=== PATIENT | male | born 1945 | race Caucasian/White ===

== ENCOUNTER 2016-05-26 09:28 | Day surgery (SDC) | payer MEDICARE, OTHER ==
[~2016-05-26] VITALS: Ht 181.6 cm; Wt 110.2 kg
--- NOTE | 2016-05-26 09:10 | ANESPREOP ---
Anesthesia Record Date and Time DATE: 05/26/16 TIME: 09:07 Pre-Op Diagnosis melanoma rt. shoulder Proposed Surgical Procedure WIDE EXCISION OF MELANOMA TO RT. SHOULDER Allergies: Coded Allergies: No Known Allergies (Verified Allergy, Unknown, 09/29/09) Ht/Wt/BMI Height: ' " Weight: kg BMI: kg/m2 Medications Inpatient Medications Current Medications Medications (Trade) Dose Ordered Sig/Clayton Start Time Stop Time Status Last Admin Dose Admin Lactated Ringer's (Lactated Ringers) 1,000 ml @ 50 mls/hr Q20H 05/26/16 07:00 Midazolam HCl (Versed) 0.5-3 mg every 10 min PRN Q10MIN PRN 05/26/16 07:00 Fentanyl (Fentanyl) 25-50 mcg, not to exceed ... PRN PRN 05/26/16 07:00 Lisinopril/Hydrochlorothiazide (Lisinopril-Hctz 20-25 mg Tab) 1 Each Tablet, 1 TAB PO DAILY, (Reported) Metoprolol Succinate (Toprol Xl) 25 Mg Tab.sr.24h, (Reported) Currently on Beta Chaya: Yes Medical/Surgical History Anesthesia PMH: Reports: *Hypertension (per h&p), Cancer (right shoulder- malignant -melanoma per h&p), Denies: *Angina, *Diabetes, *Dyspnea, *UT, Anesthesia Reactions, Arthritis, Asthma, CHF, COPD, CVA/Stroke/TIA, Clotting Problems, Deep Vein Thrombosis, Glaucoma, Hepatitis, Hiatal Hernia, Malignant Hyperthermia, Pneumonia, Reflux, Renal Disease, Seizures, Sleep Apnea, Thyroid Disease, Tuberculosis Smoking Status: Never smoker Has pt. smoked today?: No Use Chewing Tobacco?: No Second Hand Exposure: No Substance Use Type: does not use Substance last used: unknown Alcohol Intake: none Past Surgical History Orthopedic Surgeries: No Abdominal Surgeries: No Genitourinary Surgeries: No Cardiac Surgeries: No Endocrine Surgeries: No Reproductive Surgeries: No Neurological Surgeries: No Ear Surgeries: No Nose Surgeries: Yes - SEPTOPLASTY Throat Surgeries: No Other Surgeries: No Anesthesia Adverse Reactions: FOUND none Hx of Motion Sickness: No Pertinent Findings EKG Rhythm: Sinus Rhythm Physical Exam Respiratory: Bilat breath sounds equal, Lungs clear Cardiovascular: FOUND Regular rate, rhythm, FOUND No murmur Airway Assessment Mallampati Score: II TMD: 3 Fingerbreadths Neck Extension: Good Overall Assessment: No Airway Concerns ASA: 2 Plan Anesthesia Plan: MAC Discussion Discussed risks/options/alternatives of anesthesia and questions answered. Patient consents. Nursing pain assessment noted. Attestation Statement Prior to the delivery of any anesthetic medication, I examined the patient, developed the plan, obtained the patient's consent and discussed the risk and benefits of the procedure with the patient/guardian. RAFAEL GODINEZ CRNA May 26, 2016 09:09
[~2016-05-26 09:28] MED LIST: CEFAZOLIN 1 GRAM INJECTION IV ONE; FENTANYL 100mcg/2ml INJECTION IV PRN; LIDOCAINE 1% (10mg/ml) 2ml SDV INJ ONE; LIDOCAINE 1%/EPI 1:100,000 20ml MDV ONE; LISI1TAB13 PO; LR 1,000 ML IV SCH; METO25TA40 PO; MIDAZOLAM 5mg/5ml INJECTION IV PRN
--- OUTSIDE RECORDS SUMMARY | 2016-05-26 09:31 | XMS REPORT | CCD ---
Author Author JONATHAN STAPLES Organization Unknown Address [address] [place], [place] [id number] Phone 0 Care Team Providers Care Turning Machine Operator Helper Name Role Phone Bri SHAH Attending Physician [phone] Vital Signs Unknown. Allergies Allergy Code Allergy Type Reaction Status No Known Drug Allergies 0 No known drug allergies Active Procedures Unknown. History of Immunizations Unknown. Problems Unknown. Results HEMOGLOBIN Test Name Code Test Result Test Units Test Date/Time HEMOGLOBIN 11.4000 g /dL 05/14/2013 14:40 Medications Unknown. Medications Administered Unknown. Encounters Unknown. Social History Smoking Status Code Start Date End Date Unknown if ever smoked [id number] Patient Decision Aids Unknown. Instructions You were admitted to [facility] on 05/14/2013. You were discharged from [facility] on 05/14/2013. Should you have any questions prior to discharge, please contact a member of your healthcare team. If you have left the hospital and have any questions, please contact your primary care physician. Chief Complaint and Reason For Visit Chief Complaint Date of Onset LAB Function Status Unknown. Plan of Care Unknown. Referral/Transition of Care Unknown.
--- OUTSIDE RECORDS SUMMARY | 2016-05-26 09:31 | XMS REPORT | CCD ---
Author Author JONATHAN STAPLES Organization Unknown Address [address] [place], [place] [id number] Phone 0 Care Team Providers Care Straight Cutter Name Role Phone BRANDO JOY W Attending Physician [phone] Vital Signs Unknown. Allergies Allergy Code Allergy Type Reaction Status No Known Drug Allergies 0 No known drug allergies Active Procedures Unknown. History of Immunizations Unknown. Problems Unknown. Results COMP METABOLIC Test Name Code Test Result Test Units Test Date/Time GLUCOSE 115.0000 mg/ dL 05/03/2013 13:50 BUN 20.0000 mg/dL 05/03/2013 13:50 CREATININE 1.3000 mg /dL 05/03/2013 13:50 [age]GE 68.0000 YE[age] 05/03/2013 13:50 GFR 58.7000 05/03/2013 13:50 SODIUM 140.0000 mmol /L 05/03/2013 13:50 POTASSIUM 4.1000 mmol/L 05/03/2013 13:50 CHLORIDE 105.0000 mmol/L 05/03/2013 13:50 CO2 26.0000 mmol/L 05/03/2013 13:50 CALCIUM 9.3000 mg/ dL 05/03/2013 13:50 AST 14.0000 U/L 05/03/2013 13:50 ALT 33.0000 U/L 05/03/2013 13:50 ALKALINE PHOS 140.0000 U/L 05/03/2013 13:50 TOTAL PROTEIN 7.2000 g/dL 05/03/2013 13:50 ALBUMIN 3.7000 g/dL 05/03/2013 13:50 TOTAL BILI 0.7000 mg /dL 05/03/2013 13:50 LIPASE Test Name Code Test Result Test Units Test Date/Time LIPASE 242.0000 U/L 05/03/2013 13:50 CBC W/ DIFF Test Name Code Test Result Test Units Test Date/Time WBC 12.1000 x10^3 05/03/2013 13:50 RBC 5.5600 x10^6 05/03/2013 13:50 HEMOGLOBIN 16.2000 g /dL 05/03/2013 13:50 HEMATOCRIT 48.1000 % 05/03/2013 13:50 MCV 87.0000 fL 05/03/2013 13:50 MCH 29.2000 pg 05/03/2013 13:50 MCHC 33.7000 g/dL 05/03/2013 13:50 RDW 13.2000 % 05/03/2013 13:50 PLATELETS 248.0000 x10^3 05/03/2013 13:50 MPV 8.8000 fL 05/03/2013 13:50 NEUTROPHILS 80.6000 % 05/03/2013 13:50 LYMPHOCYTES 12.9000 % 05/03/2013 13:50 MONOCYTES 6.2000 % 05/03/2013 13:50 EOSINOPHILS 0.3000 % 05/03/2013 13:50 BASOPHILS 0.0000 % 05/03/2013 13:50 SEG 70.0000 %% 05/03/2013 13:50 BAND 10.0000 %% 05/03/2013 13:50 LYMPH 8.0000 %% 05/03/2013 13:50 MONO 7.0000 %% 05/03/2013 13:50 EOS 0.0000 %% 05/03/2013 13:50 BASO 0.0000 %% 05/03/2013 13:50 ATYP LYMPH 5.0000 % % 05/03/2013 13:50 META 0.0000 %% 05/03/2013 13:50 REFLEX MAN DIFF YES N/A 05/03/2013 13:50 RBC MORPHOLOGY NORMAL N/A 05/03/2013 13:50 Medications Medication Code Dose Units Frequency Route Modification Start Date/Time Stop Date/ Time Toprol XL 50MG Oral Tablet, Extended Release 597796 50 MILLIGRAMS DAILY ORAL Hydrochlorothiazide 25MG Oral Tablet 931624 25 MILLIGRAMS DAILY ORAL Medications Administered Unknown. Encounters Unknown. Social History Smoking Status Code Start Date End Date Unknown if ever smoked [id number] Patient Decision Aids Unknown. Instructions You were admitted to [facility] on 05/03/2013. Should you have any questions prior to discharge, please contact a member of your healthcare team. If you have left the hospital and have any questions, please contact your primary care physician. Chief Complaint and Reason For Visit Chief Complaint Date of Onset O/P LAB/FLUIDS Function Status Unknown. Plan of Care Unknown. Referral/Transition of Care Unknown.
--- OUTSIDE RECORDS SUMMARY | 2016-05-26 09:32 | XMS REPORT | Continuity of Care Document ---
Demographics Preferred Language Unknown Marital Status Unknown Hindu Affiliation Unknown Race Unknown Ethnic Group Unknown Author Author [facility] Organization [facility] Address Unknown Phone Unavailable Allergies Medications Problems Procedures Results Encounters ACCT No. Visit Date/Time Discharge Status Pt. Type Provider Facility Loc./Unit Complaint [id number] 02/06/2016 12:38:00 ACT Unknown [id number] 11/16/2013 12:57:00 ACT Unknown [id number] 05/15/2013 10:54:00 ACT Unknown [id number] 05/07/2013 07:46:00 ACT Unknown
--- OUTSIDE RECORDS SUMMARY | 2016-05-26 09:32 | XMS REPORT | Summary of Care ---
Author Author Werner Lam M.D. Unknown Address [address] [place] [address] [place] [address] Phone Unavailable Care Team Providers Care Director Wholesale Name Role Phone Werner Lam M.D. Unavailable Unavailable Melba Law APRN, PP Unavailable Unavailable Unavailable Functional Status Functional Status Health Issues* Name Dates Details Functional status health issues are not documented Status: Cognitive Status Health Issues* Name Dates Details Cognitive status health issues are not documented Status: Problems Name Dates Details Benign hypertension (401.1, I10) Status: Active Obese (278.00, E66.9) Status: Active Elevated PSA (790.93, R97.2) Status: Active Prophylactic antibiotic (V58.62, Z79.2) Status: Active BPH with obstruction/lower urinary tract symptoms (600.01, N40.1) Status: Active Incomplete bladder emptying (788.21, R33.9) Status: Active Medications Name Dates Details Lisinopril-Hydrochlorothiazide 20-12.5 MG Oral Tablet TAKE 1 TABLET DAILY. * Started 06-Dec-2014 ActiveToprol XL 50 MG Oral Tablet Extended Release 24 Hour TAKE 1 TABLET DAILY. * Refills: 0 * Started 06-Dec-2014 ActiveAspirin 81 MG Oral Tablet TAKE 1 TABLET DAILY. * Refills: 0 * Started 06-Dec-2014 ActiveTamsulosin HCl - 0.4 MG Oral Capsule TAKE 1 CAPSULE Bedtime * Quantity: 30 Refills: 0 Werner Lam M.D.* Started 21-Feb-2015 Active Allergies and Adverse Reactions Name Dates Details No Known Allergies Status: Active Past Medical History Name Dates Details History of gastrointestinal hemorrhage (V12.79, Z87.19) Status: Resolved Procedures Procedure Dates Details History of Colonoscopy Procedures not documented Immunization Name Dates Details Immunizations not documented Family History Mother* Name Dates Details Family history of malignant neoplasm (V16.9, Z80.9) Status: Active Father* Name Dates Details Family history of Bone cancer (170.9, C41.9) Status: Active Family history of hypertension (V17.49, Z82.49) Status: Active Family history of myocardial infarction (V17.3, Z82.49) Status: Active Social History Name Dates Details Smoking Status* Never smoker Vital Signs Date Test Result Details 28-Mar-2015 13:25 BP Systolic 126 mm[Hg] Status: BP Diastolic 80 mm[Hg] Status: Heart Rate 76 /min Status: Height 72 in Status: Weight 247 lb Status: Body Mass Index Calculated 33.5 kg/m2 Status: Body Surface Area Calculated 2.33 m2 Status: 07-Mar-2015 13:12 BP Systolic 147 mm[Hg] Status: BP Diastolic 88 mm[Hg] Status: Heart Rate 79 /min Status: Results Date Description Value Details Results not documented Plan of Care Planned Observations* Name Dates Details Planned Goals not documented Goal Planned Encounters* Appointment; Provider: Werner Lam On 02-Apr-2015 11:00 Instructions * Instructions not documented Encounters Appointment; Werner Lam Encounter Diagnosis: Problem not documented On 28-Mar-2015 13:30 Appointment; Werner Lam Encounter Diagnosis: Problem not documented On 07-Mar-2015 13:00 Appointment; Werner Lam Encounter Diagnosis: Problem not documented On 21-Feb-2015 13:15
--- OUTSIDE RECORDS SUMMARY | 2016-05-26 09:32 | XMS REPORT | Summary of Care ---
Author Author Werner Lam M.D. Unknown Address [address] [place] [address] [place] [address] Phone Unavailable Care Team Providers Care Steward Racetrack Name Role Phone Werner Lam M.D. Unavailable [...] Incomplete bladder emptying (788.21, R33.9) Status: Active Prostate cancer (185, C61) Status: Active Medications Name Dates Details Lisinopril-Hydrochlorothiazide 20-12.5 MG Oral Tablet TAKE 1 TABLET DAILY. * Started 06-Dec-2014 ActiveToprol XL 50 MG Oral Tablet Extended Release 24 Hour TAKE 1 TABLET DAILY. * Refills: 0 * Started 06-Dec-2014 ActiveAspirin 81 MG Oral Tablet TAKE 1 TABLET DAILY. * Refills: 0 * Started 06-Dec-2014 ActiveTamsulosin HCl - 0.4 MG Oral Capsule TAKE 1 CAPSULE BY MOUTH AT BEDTIME * Quantity: 90 Refills: 3 Werner Lam M.D.* Started 21-Feb-2015 Active Allergies [...] smoker Vital Signs Date Test Result Details 04-Apr-2015 12:53 BP Systolic 112 mm[Hg] Status: BP Diastolic 67 mm[Hg] Status: Heart Rate 64 /min Status: Height 72 in Status: Weight 247 lb Status: Body Mass Index Calculated 33.5 kg/m2 Status: Body Surface Area Calculated 2.33 m2 Status: 28-Mar-2015 13:25 BP Systolic 126 mm[Hg] Status: [...] Planned Encounters* Appointment; Provider: Werner Lam On 13:15 Instructions * Instructions not documented Encounters Appointment; Werner Lam Diagnosis: Problem not documented On 04-Apr-2015 11:45 Appointment; Werner Lam Diagnosis: Problem not documented On 28-Mar-2015 13:30 Appointment; Werner Lam Diagnosis: Problem not documented On 07-Mar-2015 13:00 Appointment; Werner Lam Diagnosis: Problem not documented On 21-Feb-2015 13:15
--- OUTSIDE RECORDS SUMMARY | 2016-05-26 09:32 | XMS REPORT | Summary of Care ---
Author Author Werner Lam M.D. Unknown Address [address] [place] [address] [place] [address] Phone Unavailable Care Team Providers Care Collections Technician Name Role Phone Werner Lam M.D. Unavailable [...] Dates Details Planned Goals not documented Goal Instructions * Instructions not documented Encounters Appointment; Werner Lam Encounter Diagnosis: Problem not documented On 28-Mar-2015 13:30 Appointment; Werner Lam Encounter Diagnosis: Problem not documented On 07-Mar-2015 13:00 Appointment; Werner Lam Encounter Diagnosis: Problem not documented On 21-Feb-2015 13:15
--- OUTSIDE RECORDS SUMMARY | 2016-05-26 09:32 | XMS REPORT | Summary of Care ---
Author Author Werner Lam M.D. Unknown Address [address] [place] [address] [place] [address] Phone Unavailable Care Team Providers Care Product Marketer Name Role Phone Werner Lam M.D. Unavailable [...]
--- OUTSIDE RECORDS SUMMARY | 2016-05-26 09:32 | XMS REPORT | Summary of Care ---
Author Author Werner Lam M.D. Unknown Address [address] [place] [address] [place] [address] Phone Unavailable Care Team Providers Care Trip Motor Operator Name Role Phone Law CARDIOVASCULAR TECHNICIAN Melba TAYLOR Unavailable Functional Status Functional Status Health Issues* Name Dates Details Functional status health issues are not documented Status: Cognitive Status Health Issues* Name Dates Details Cognitive status health issues are not documented Status: Problems Name Dates Details Benign hypertension (401.1, I10) Status: Active Obese (278.00, E66.9) Status: Active Elevated PSA (790.93, R97.2) Status: Active BPH with obstruction/lower urinary tract [...] DAILY. * Refills: 0 * Started 06-Dec-2014 Active Allergies and Adverse Reactions Name Dates [...] smoker Vital Signs Date Test Result Details 21-Feb-2015 13:16 BP Systolic 123 mm[Hg] Status: BP Diastolic 82 mm[Hg] Status: Heart Rate 68 /min Status: Height 72 in Status: Weight 247 lb Status: Body Mass Index Calculated 33.5 kg/m2 Status: Body Surface Area Calculated 2.33 m2 Status: Results Date Description Value Details Results not documented Plan of Care Planned Observations* Name Dates Details Planned Goals not documented Goal Planned Encounters* Appointment; Provider: Werner Lam On 07-Mar-2015 13:00 Instructions * Instructions not documented Encounters Appointment; Werner Lam Encounter Diagnosis: Problem not documented On 21-Feb-2015 13:15
--- OUTSIDE RECORDS SUMMARY | 2016-05-26 09:32 | XMS REPORT | Summary of Care ---
Author Author Werner Lam M.D. Organization Unknown Address [address] [place] [address] [place] [address] Phone Unavailable Care Team Providers Care Chemists Name Role Phone Werner Lam M.D. Unavailable Unavailable Melba Law APRN, PP Unavailable Unavailable Unavailable Functional Status Functional Status Health Issues* Name Dates Details Functional status health issues are not documented Status: Cognitive Status Health Issues* Name Dates Details Cognitive status health issues are not documented Status: Problems Name Dates Details Benign hypertension (401.1, I10) Status: Active Obese (278.00, E66.9) Status: Active Prophylactic antibiotic (V58.62, Z79.2) Status: Active BPH with obstruction/lower urinary tract symptoms (600.01, N40.1) Status: Active Elevated PSA (790.93, R97.2) Status: Active Incomplete bladder emptying (788.21, R33.9) [...] Refills: 0 Werner Lam M.D.* Started 21-Feb-2015 ActiveCiprofloxacin HCl - 500 MG Oral Tablet TAKE 1 TABLET Twice daily Start 2 days before biopsy * Quantity: 10 Refills: 0 Werner Lam M.D.* Started 04-Mar-2015 Active Allergies and Adverse Reactions Name Dates [...] smoker Vital Signs Date Test Result Details 07-Mar-2015 13:12 BP Systolic 147 mm[Hg] Status: BP Diastolic 88 mm[Hg] Status: Heart Rate 79 /min Status: 21-Feb-2015 13:16 BP Systolic 123 mm[Hg] Status: [...] Planned Encounters* Appointment; Provider: Werner Lam On 28-Mar-2015 13:30 Instructions * Instructions not documented Encounters Appointment; Werner Lam Encounter Diagnosis: Problem not documented On 07-Mar-2015 13:00 Appointment; Werner Lam Encounter Diagnosis: Problem not documented On 21-Feb-2015 13:15
--- OUTSIDE RECORDS SUMMARY | 2016-05-26 09:32 | XMS REPORT | Summary of Care ---
Author Author Werner Lam M.D. Organization Unknown Address [address] [place] [address] [place] [address] Phone Unavailable Care Team Providers Care Lift Mechanic Name Role Phone Werner Lam M.D. Unavailable [...] ActiveCiprofloxacin HCl - 500 MG Oral Tablet Take 1 tablet twice daily * Quantity: 10 Refills: 0 Werner Lam M.D.* Started 07-Mar-2015 Ended 12-Mar-2015 Active Allergies and Adverse Reactions Name Dates [...] m2 Status: Results Date Description Value Details 24-Feb-2015 09:18 PSA ( PROSTATE SPECIFIC ANTIGEN) 3100 Comments: Verified by Repeat Analysis PROSTATE SPECIFIC ANTIGEN 9.250 ng/mL (Above high threshold) Range: 0.000 -4.000 Plan of Care Planned Observations* Name Dates Details Planned Goals not documented Goal Planned Encounters* Appointment; Provider: Werner Lam On 28-Mar-2015 13:30 Instructions * Instructions not documented Encounters Appointment; Werner Lam Encounter Diagnosis: Problem not documented On 07-Mar-2015 13:00 Appointment; Werner Lam Encounter Diagnosis: Problem not documented On 21-Feb-2015 13:15
--- OUTSIDE RECORDS SUMMARY | 2016-05-26 09:32 | XMS REPORT | CCD ---
Author Author JONATHAN STAPLES Organization Unknown Address [address] [place], [place] [address] Phone 0 Care Team Providers Care Cheese Tester Name Role Phone RENDON BELEM Attending Physician 0 Vital Signs Unknown or Not Available. Allergies Allergy Code Allergy Type Reaction Status No Known Drug Allergies 0 No known drug allergies Active Procedures Unknown or Not Available. History of Immunizations Unknown or Not Available. Problems Unknown or Not Available. Results COMP METABOLIC - Collect Date/Time: 11/02/2013 17:00 Test Name Code Test Result Test Units Test Ref Range GLUCOSE 113 mg/dL L=70 H=110 BUN 19 mg/dL L=7 H=18 CREATININE 1.20 mg/ dL L=0.60 H=1.30 AGE 68 YEARS GFR 64.4 SODIUM 143 mmol/L L=136 H=145 POTASSIUM 3.9 mmol/ L L=3.5 H=5.1 CHLORIDE 106 mmol/L L=98 H=107 CO2 24 mmol/L L=21 H=32 CALCIUM 9.6 mg/dL L=8.5 H=10.1 AST 14 U/L L=15 H=37 ALT 34 U/L L=12 H=78 ALKALINE PHOS 116 U/ L L=46 H=116 TOTAL PROTEIN 7.8 g/ dL L=6.4 H=8.2 ALBUMIN 4.0 g/dL L=3.4 H=5.0 TOTAL BILI 0.50 mg/ dL L=0.00 H=1.00 LIPID PANEL - Collect Date/Time: 11/02/2013 17:00 Test Name Code Test Result Test Units Test Ref Range CHOLESTEROL 135 mg/ dL L=0 H=200 TRIGLYCERIDES 150 mg /dL L=30 H=150 HDL 47 mg/dL L=40 H=60 LDL, CALC 58 mg/dL L=0 H=100 VLDL 30 mg/dL L=0 H=40 CHOL/HDL RISK 2.9 RATIO L=0.0 H=5.0 PT FASTING: NO N/A Medications Unknown or Not Available. Medications Administered Unknown or Not Available. Encounters Unknown or Not Available. Social History Smoking Status Code Start Date End Date Unknown if ever smoked [id number] Patient Decision Aids Unknown or Not Available. Discharge Instructions You were admitted to [facility] on 11/02/2013. You were discharged from [facility] on 11/02/2013. Should you have any questions prior to discharge, please contact a member of your healthcare team. If you have left the hospital and have any questions, please contact your primary care physician. Chief Complaint and Reason For Visit Chief Complaint Date of Onset LAB Function Status Unknown or Not Available. Plan of Care Unknown or Not Available. Referral/Transition of Care Unknown or Not Available.
--- OUTSIDE RECORDS SUMMARY | 2016-05-26 09:33 | XMS REPORT | CCD ---
Author Author CHERYL REYES Organization Unknown Address [address] [place], [place] [address] Phone 0 Care Team Providers Care Executive Secretary Name Role Phone PERICO ANDRAE Attending Physician [phone] Vital Signs Unknown or Not Available. Allergies Allergy Code Allergy Type Reaction Status No Known Drug Allergies 0 No known drug allergies Active Procedures Unknown or Not Available. History of Immunizations Unknown or Not Available. Problems Unknown or Not Available. Results COMP METABOLIC - Collect Date/Time: 12/26/2015 10:09 Test Name Code Test Result Test Units Test Ref Range GLUCOSE 88 mg/dL L=70 H=110 BUN 17 mg/dL L=7 H=18 CREATININE 0.98 mg/ dL L=0.60 H=1.30 AGE 70 YEARS GFR 76.1 SODIUM 142 mmol/L L=136 H=145 POTASSIUM 4.0 mmol/ L L=3.5 H=5.1 CHLORIDE 105 mmol/L L=98 H=107 CO2 30 mmol/L L=21 H=32 CALCIUM 9.1 mg/dL L=8.5 H=10.1 AST 14 U/L L=15 H=37 ALT 25 U/L L=12 H=78 ALKALINE PHOS 95 U/ L L=46 H=116 TOTAL PROTEIN 7.2 g/ dL L=6.4 H=8.2 ALBUMIN 3.8 g/dL L=3.4 H=5.0 TOTAL BILI 0.60 mg/ dL L=0.00 H=1.00 LIPID PANEL - Collect Date/Time: 12/26/2015 10:09 Test Name Code Test Result Test Units Test Ref Range CHOLESTEROL 135 mg/ dL L=0 H=200 TRIGLYCERIDES 96 mg/ dL L=30 H=150 HDL 46 mg/dL L=40 H=60 LDL, CALC 70 mg/dL L=0 H=100 VLDL 19 mg/dL L=0 H=40 CHOL/HDL RISK 2.9 RATIO L=0.0 H=5.0 PT FASTING: YES N/A CBC W/ DIFF - Collect Date/Time: 12/26/2015 10:09 Test Name Code Test Result Test Units Test Ref Range WBC 7.3 x10^3 L=4.8 H=10.8 RBC 5.63 x10^6 L=4.70 H=6.10 HEMOGLOBIN 16.4 g/ dL L=14.0 H=18.0 HEMATOCRIT 47.8 % L=42.0 H=52.0 MCV 85 fL L=80 H=100 MCH 29.0 pg L=27.0 H=33.0 MCHC 34.2 g/dL L=33.0 H=37.0 RDW 13.6 % L=11.5 H=14.5 PLATELETS 216 x10^3 L=150 H=450 MPV 8.3 fL L=7.8 H=11.0 NEUTROPHILS 73.7 % L=40.0 H=80.0 LYMPHOCYTES 15.8 % L=20.0 H=45.0 MONOCYTES 7.4 % L=0.0 H=10.0 EOSINOPHILS 2.6 % L=0.0 H=5.0 BASOPHILS 0.5 % L=0.0 H=2.0 REFLEX MAN DIFF NO N /A Active Medications Unknown or Not Available. Medications Administered During Visit Unknown or Not Available. Encounters Encounter Diagnosis Diagnosis Code Start Date Essential (primary) hypertension I10 Social History Smoking Status Code Start Date End Date Unknown if ever smoked [id number] Patient Decision Aids Unknown or Not Available. Discharge Instructions You were admitted to [facility] on 12/26/2015 10:00 with a principal diagnosis of Essential (primary) hypertension You had the following tests done: CBC W / DIFF COMP METABOLIC LIPID PANEL You were discharged from [facility] on 12/26/2015 10:01 Should you have any questions prior to [...]
--- OUTSIDE RECORDS SUMMARY | 2016-05-26 09:33 | XMS REPORT | Summary of Care ---
Author Author Werner Lam M.D. Organization Unknown Address [address] [place] [address] [place] [address] Phone Unavailable Care Team Providers Care Compensation Vice President Name Role Phone Werner Lam M.D. Unavailable [...] daily * Quantity: 10 Refills: 0 Werner aLm M.D.* Started 07-Mar-2015 Ended 12-Mar-2015 Active Allergies [...]
[2016-05-26 09:53] VITALS: BP 143/88; PULSE 64; RESP 17; TEMP 97.6; O2SAT 95; Ht 181.6 cm; Wt 110.2 kg
[2016-05-26] MEDS ORDERED: FENTANYL 100mcg/2ml INJECTION ONE (11:17)
[2016-05-26] MEDS ORDERED: MIDAZOLAM 2mg/2ml INJECTION ONE (11:17)
[2016-05-26 11:45] VITALS: BP 120/75; PULSE 61; RESP 23; TEMP 97.2; O2SAT 94
--- NOTE | 2016-05-26 11:49 | PDPROCED ---
Procedure Note Date 05/26/16 Procedure Name Wide excision of malignant melanoma right shoulder: Lesion size 2.8 cm, excision 5x4.8 cm, final defect 6.6x6.3x0.4 cm Procedure Detail Preop dx: Malignant melanoma right shoulder, Faisal's level 3, Breslow depth 0.6 mm. Postop dx: Same Anesthesia: MAC Case: Clean Complications: None JULIA PATTEN MD May 26, 2016 11:48
[2016-05-26] MEDS ORDERED: ACET1TAB12 PO (11:55)
[2016-05-26] MEDS ORDERED: CEPH-583 PO (11:55)
--- NOTE | 2016-05-26 11:58 | ANESPO ---
Post-Op Note Date 05/26/16 Time: 11:57 Status Pt Participated in Evaluation: Pt participated by phone Vital Signs Date Time Temp Pulse Resp B/P Pulse Ox O2 Delivery O2 Flow Rate FiO2 05/26/16 11:45 97.2 61 23 120/75 94 Room Air Respiratory Function: Airway patent, Regular respirations Cardiovascular Function: Regular pulse Mental Status: Alert/oriented Pain Level Intensity: 0 Hydration: Taking po fluids, IV infusing Complications during Recovery None apparent Post-Anesthesia Notes pt. grady. well Follow-Up Instructions Instructions Per Surgeon Additional Information none RAFAEL GODINEZ CRNA May 26, 2016 11:57
[2016-05-26 12:00] VITALS: BP 131/83; PULSE 60; RESP 22; O2SAT 96
[2016-05-26] MEDS ORDERED: ONDANSETRON 4mg/2ml INJECTION IV PRN (12:00)
[2016-05-26] MEDS ORDERED: HYDROCODONE/APAP 5 mg/325 mg TABLET PO PRN (12:00)
[2016-05-26] MEDS ORDERED: ATROPINE 1mg/10ml Syringe IV PRN (12:00)
[2016-05-26 12:15] VITALS: BP 114/69; PULSE 60; RESP 21; O2SAT 94
[2016-05-26 12:30] VITALS: BP 117/71; PULSE 58; RESP 22; O2SAT 95
--- NOTE | 2016-05-26 15:26 | OPNOTEF ---
DATE OF SURGERY 05/26/2016 SURGEON Martha Chaney MD PREOPERATIVE DIAGNOSIS Malignant melanoma, right shoulder. POSTOPERATIVE DIAGNOSIS Malignant melanoma, right shoulder. OPERATION Wide excision of malignant melanoma, right shoulder. Lesion size was 2.8 cm, excision 5 x 4.8 cm, final defect 6.6 x 6.3 x 0.4 cm. ANESTHESIA MAC. INDICATIONS The patient is a 71-year-old man who was referred by Dr. Juan Manuel Young for evaluation and management of a biopsy-proven malignant melanoma of his right shoulder. The patient had first noticed the lesion on his shoulder approximately five years ago and stated that it had been gradually increasing in size. He denied any pain or bleeding. Dr. Young had evaluated the lesion and a shave biopsy was performed - pathology results confirmed a superficial spreading malignant melanoma, Faisal level III, Breslow level 0.6 mm. It was negative for ulceration, lymphovascular or perineural invasion and the mitotic rate was less than 1 figure/HPF. The patient has no family history of skin cancer; he does have frequent sun exposure without sunscreen and works as a dump truck driver off highway. On exam, he had a 2.8 cm dark-brown lesion with irregular pigmented and irregular borders with regression laterally. A portion of the lesion was pink and consistent with a shave biopsy. In detailed discussion with the patient preoperatively, the risks, benefits and alternatives of wide excision of the lesion with secondary closure were reviewed including, although not limited to, bleeding, infection, poor or keloid scarring, residual and/or recurrent disease. The patient understood and wished to proceed. PROCEDURE The patient was brought to the operating room where, after suitable IV sedation , the right shoulder was prepped and draped in the usual sterile manner. It was then infiltrated with 1% lidocaine with epinephrine. The lesion was excised with 1-cm margins peripherally and down to the fascia in depth. The final defect was as noted above. Meticulous hemostasis was obtained using electrocautery. The wound was then dressed with Hydrofera Blue Ready, Mepilex, ABD and Mefix tape. The patient was then brought to the recovery room in stable condition. Estimated blood loss was less than 10 mL. The case was clean. Specimens: Malignant melanoma, right shoulder. [facility]
== END 2016-05-26 12:35 | disposition home or self-care (01) ==
LOC: SCU 09:28
PROVIDERS: ATTEND Surgery Plastic and Reconstructive Surgery
DX: C43.61 Malignant melanoma of right upper limb, including shoulder (principal)
CPT/HCPCS: 11606; A6209; A6210; J0690; J2250; J3010; J7120; 88305

== ENCOUNTER 2016-05-31 06:53 | Day surgery (SDC) | payer MEDICARE, OTHER ==
[~2016-05-31] VITALS: Ht 180.3 cm; Wt 110.6 kg
[~2016-05-31 06:53] MED LIST changes: +ACET1TAB12 PO; -CEFAZOLIN 1 GRAM INJECTION IV ONE; +CEPH-583 PO; -FENTANYL 100mcg/2ml INJECTION IV PRN; -LIDOCAINE 1% (10mg/ml) 2ml SDV INJ ONE; -LR 1,000 ML IV SCH; -MIDAZOLAM 5mg/5ml INJECTION IV PRN
--- OUTSIDE RECORDS SUMMARY | 2016-05-31 06:59 | XMS REPORT | Continuity of Care Document ---
Demographics Preferred Language Unknown Marital Status Unknown Zoroastrianism Affiliation Unknown Race Unknown Ethnic Group Unknown Author Author [facility] Organization [facility] Address Unknown Phone Unavailable Allergies Medications Problems Procedures Results Encounters ACCT No. Visit Date/Time Discharge Status Pt. Type Provider Facility Loc./Unit Complaint [id number] 02/06/2016 12:38:00 ACT Unknown [id number] 11/16/2013 12:57:00 ACT Unknown [id number] 05/15/2013 10:54:00 ACT Unknown [id number] 05/07/2013 07:46:00 ACT Unknown
--- OUTSIDE RECORDS SUMMARY | 2016-05-31 06:59 | XMS REPORT | Continuity of Care Document ---
Author Author [facility] Organization [facility] Address Unknown Phone Unavailable Support Name Relationship Address Phone JULIA PATTEN MD Caregiver [address] [place] [address] [place] [address] Unavailable KIRBY RIVER "ANDRAE" Caregiver [address] [place] [address] Unavailable TAM TORRE Next Of Kin Unknown [phone] Insurance Providers Guarantor Pedro Torre Address [address] [place] [address] * Email [email or web address] Payer [employer] Policy Number [id number] Subscriber's Name Pedro Torre Relationship 18 Self Group Number [id number] Payer Medicare Policy Number [id number] Subscriber's Name Pedro Torre Relationship 18 Self Advance Directives Directive Response Recorded Date/Time Ordered Resuscitation Status Full Code 05/25/16 2:32pm Resuscitation Documents on File No 05/26/16 10:13am DPOA for Healthcare Only No 05/26/16 10:13am Living Will No 05/26/16 10:13am Problems No problem information available. Medications Current Home Medications Medication Dose Units Route Directions Days Qty Instructions Start Date Acetaminophen With Codeine (Tylenol With Codeine #3 Tablet) 300-30 Tablet 1-2 Tab Oral Every 4-6 Hours Prn as needed for Pain 20 Tablet 05/26/16 Cephalexin (Keflex) 500 Mg Capsule 500 Mg Oral Daily 4 Capsule Lisinopril/Hydrochlorothiazide (Lisinopril-Hctz 20-25 Mg Tab) 1 Each Tablet 1 Tab Oral Daily 05/25/16 Metoprolol Succinate (Toprol Xl) 25 Mg Tab.sr.24h Social History Social History Problem Response Recorded Date/Time Onset Date Status Reason for Hospitalization REMOVAL OF SKIN LESION 05/26/2016 12:04pm Not Applicable Not Applicable Chewing Tobacco Status Yes 07/10/2012 5:07pm Not Applicable Not Applicable Hx Substance Use No 05/26/2016 9:57am Not Applicable Not Applicable Hx Alcohol Use Y beer 3-4 day. rum on the weekends 05/26/2016 9:57am Not Applicable Not Applicable Has the pt used tobacco in the last 12 months Yes 05/26/2016 9:57am Not Applicable Not Applicable Query Response Start Date Stop Date Smoking Status Never smoker Hospital Discharge Instructions Instructions: Care Instructions: I was in the hospital because (patient own words): to have skin cancer removd from my right shoulder Discharge Diet: Regular Discharge Activity: Refer to pre-operative packet Follow Up Appointments: Follow up surgery will be on TuesdayMay 31 at [facility]. The hospital will call you on Tuesday with your arrival time for Tuesday. Pending Lab / Results: No Pending Lab Patient Instructions: Take Keflex 500 mg daily. Expected Signs/Symptoms: Refer to pre-operative packet Notify Physician If: Refer to pre-operative packet During Business Hours:: Call the office with questions or concerns [phone] After Business Hours:: Call [phone] and have the tubing machine operator page the physician Pain Management/Treatment: Refer to pre-operative packet Wound/Incision Care: Leave all dressings in place. Do not get wet. Condition at time of discharge: Good Plan of Care Discharge Date 05/26/16 12:35pm Instructions/Education Provided [facility] Prescriptions See Medication Section Functional Status Query Response Date Recorded Ability to complete ADL's impeded by No change May 26, 2016 10:13am Allergies, Adverse Reactions, Alerts No known allergies. Immunizations Query Response on File Recorded Date/Time Hx Influenza Vaccination No 05/26/16 9:57am Hx Pneumococcal Vaccination No 05/26/16 9:57am Hx Influenza Vaccination No 05/26/16 9:57am Vital Signs Acute Vital Signs Vital Response Date/Time Temperature (Fahrenheit) 97.2 deg F (96.8 - 99.1) 05/26/2016 11:45am Temperature (Calculated Celsius) 36.02086 degrees C (36.0 - 37.3) 05/26/2016 11:45am Temperature Source Temporal 05/26/2016 11:45am Pulse Rate (adult) 58 bpm (60 - 100) 05/26/2016 12:30pm Respiratory Rate 22 breaths/min (10 - 20) 05/26/2016 12:30pm O2 Sat by Pulse Oximetry 95 % (90 - 100) 05/26/2016 12:30pm Oxygen Delivery Method Room Air 05/26/2016 12:30pm Blood Pressure 117/71 mm Hg 05/26/2016 12:30pm Blood Pressure Source Automatic Cuff 05/26/2016 12:30pm Height (Feet) 5 feet 05/26/2016 9:53am Height (Inches) 11.50 inches 05/26/2016 9:53am Weight (Kilograms) 110.200 kg 05/26/2016 9:53am Body Mass Index (BMI) 33.4 05/26/2016 9:53am Results No known relevant diagnostic tests, laboratory data and/or discharge summary. Procedures Procedure Status Date Provider(s) Excision of lesion Completed 05/26/16 JULIA PATTEN MD Encounters Encounter Location Arrival/Admit Date Discharge/Depart Date Attending Provider Departed [facility] 05/26/16 9:28am 05/26/16 12 :35pm JULIA PATTEN MD
[2016-05-31] MEDS ORDERED: LIDOCAINE 1% (10mg/ml) 2ml SDV INJ ONE (07:00)
[2016-05-31] MEDS ORDERED: LR 1,000 ML IV SCH (07:00)
[2016-05-31 07:27] VITALS: Ht 180.3 cm; Wt 110.6 kg
[2016-05-31 07:28] VITALS: BP 147/89; PULSE 56; RESP 14; TEMP 97.4; O2SAT 98
[2016-05-31 07:44] VITALS: PULSE 59; RESP 16
[2016-05-31 07:54] LABS: ANION GAP 14 MEQ/L (5-15); BUN/CREATININE RATIO 18 RATIO (6-26); CALCIUM 9.7 MG/DL (8.4-10.2); CHLORIDE 101 MEQ/L (98-107); CO2 - CARBON DIOXIDE 31 MEQ/L (22-30); GLOMERULAR FILTRATION RATE 74; GLUCOSE 94 MG/DL (75-110); SODIUM 146 MEQ/L (134-144)
[2016-05-31] MEDS ORDERED: CEFAZOLIN 1 GRAM INJECTION IV ONE (08:00)
--- NOTE | 2016-05-31 09:19 | ANESPREOP ---
Anesthesia Record Date and Time DATE: 05/31/16 TIME: 09:17 Pre-Op Diagnosis melanoma Proposed Surgical Procedure SKIN GRAFT NPO since: [place] Allergies: Coded Allergies: No Known Allergies (Verified Allergy, Unknown, 09/29/09) Ht/Wt/BMI Height: 5 ' 11.00 " Weight: 110.600 kg BMI: 34.0 kg/m2 Vital Signs Date Time Temp Pulse Resp B/P Pulse Ox O2 Delivery O2 Flow Rate FiO2 05/31/16 07:44 59 16 05/31/16 07:28 97.4 147/89 98 Room Air Medications Inpatient Medications Current Medications Medications (Trade) Dose Ordered Sig/Clayton Start Time Stop Time Status Last Admin Dose Admin Lactated Ringer's (Lactated Ringers) 1,000 ml @ 50 mls/hr Q20H 05/31/16 07:00 Acetaminophen with Codeine (Tylenol with Codeine #3 Tablet) 300-30 Tablet, 1-2 TAB PO Q4-6HPRN PRN for PAIN Last Taken: on 05/30/16 1800 Cephalexin (Keflex) 500 Mg Capsule, 500 MG PO DAILY Last Taken: on 05/30/16 1800 Lisinopril/Hydrochlorothiazide (Lisinopril- Hctz 20-25 mg Tab) 1 Each Tablet, 1 TAB PO DAILY, (Reported) Last Taken: on 05/30/16 0800 Metoprolol Succinate (Toprol Xl) 25 Mg Tab.sr.24h, 1 TAB PO DAILY, (Reported) Last Taken: on 05/31/16 0530 Currently on Beta Chaya: Yes Beta Chaya Last Taken: 05/31/16 0530 Medical/Surgical History Anesthesia PMH: Reports: *Hypertension, Cancer (right shoulder-malignant - melanoma ), Denies: *Angina, *Diabetes, *Dyspnea, *MA, Anesthesia Reactions (no airway issues), Arthritis, Asthma, CHF, COPD, CVA/Stroke/TIA, Clotting Problems , Deep Vein Thrombosis, Glaucoma, Hepatitis, Hiatal Hernia, Malignant Hyperthermia, Pneumonia, Reflux, Renal Disease, Seizures, Sleep Apnea, Thyroid Disease, Tuberculosis Smoking Status: Never smoker Use Chewing Tobacco?: No Second Hand Exposure: No Substance Use Type: does not use Substance last used: unknown Alcohol Intake: none Past Surgical History Orthopedic Surgeries: No Abdominal Surgeries: No Genitourinary Surgeries: No Cardiac Surgeries: No Endocrine Surgeries: No Reproductive Surgeries: No Neurological Surgeries: No Ear Surgeries: No Nose Surgeries: Yes - SEPTOPLASTY Throat Surgeries: Yes - tonsils Other Surgeries: Yes - SKIN CA REMOVAL RIGHT SHOULDER Anesthesia Adverse Reactions: FOUND none Pertinent Findings Laboratory Tests 05/31/16 07:31 EKG Rhythm: Sinus Rhythm Physical Exam Respiratory: Bilat breath sounds equal, Lungs clear Cardiovascular: FOUND Regular rate, rhythm, FOUND No murmur Airway Assessment Mallampati Score: I TMD: 3 Fingerbreadths Neck Extension: Good Teeth: Poor Dentation (missing several) Overall Assessment: No Airway Concerns ASA: 3 Plan Anesthesia Plan: TIVA Discussion Discussed risks/options/alternatives of anesthesia and questions answered. Patient consents. Nursing pain assessment noted. Attestation Statement Prior to the delivery of any anesthetic medication, I examined the patient, developed the plan, obtained the patient's consent and discussed the risk and benefits of the procedure with the patient/guardian. NAILA PINTO CRNA May 31, 2016 09:19
[2016-05-31] MEDS ORDERED: PROPOFOL 500mg 50 ML IV ONE (09:29)
[2016-05-31] MEDS ORDERED: FENTANYL 100mcg/2ml INJECTION ONE (09:32)
[2016-05-31 10:14] VITALS: BP 102/62; PULSE 65; RESP 16; TEMP 97.3; O2SAT 98
[2016-05-31] MEDS ORDERED: ONDANSETRON 4mg/2ml INJECTION IV PRN (10:15)
[2016-05-31] MEDS ORDERED: ATROPINE 1mg/10ml Syringe IV PRN (10:15)
[2016-05-31] MEDS ORDERED: HYDROCODONE/APAP 5 mg/325 mg TABLET PO PRN (10:15)
--- NOTE | 2016-05-31 10:17 | PDPROCED ---
Procedure Note Date 05/31/16 Procedure Name STSG to right shoulder: 6.5 x 6 cm Procedure Detail Preop dx: Open wound right shoulder status post wide excision of malignant melanoma Postop dx: Same Anesthesia: MAC Case: Clean contaminated EBL: Less than 5 ml Complications: None JULIA PATTEN MD May 31, 2016 10:17
[2016-05-31] MEDS ORDERED: ACET1TAB12 PO (10:19)
[2016-05-31] MEDS ORDERED: CEPH-583 PO (10:19)
--- NOTE | 2016-05-31 10:28 | ANESPO ---
Post-Op Note Date 05/31/16 Time: 10:28 Status Pt Participated in Evaluation: Pt participated in person Vital Signs Date Time Temp Pulse Resp B/P Pulse Ox O2 Delivery O2 Flow Rate FiO2 05/31/16 10:14 97.3 65 16 102/62 98 Mask 5.00 Respiratory Function: Airway patent, Regular respirations Cardiovascular Function: Regular pulse Telemetry Pattern: SR Mental Status: Alert/oriented Pain Level Intensity: 0 Hydration: Taking po fluids Complications during Recovery None apparent Follow-Up Instructions Instructions Per Surgeon NAILA PINTO CRNA May 31, 2016 10:28
[2016-05-31 10:29] VITALS: BP 113/71; PULSE 61; RESP 16; TEMP 97.6; O2SAT 94
[2016-05-31 10:44] VITALS: BP 113/76; PULSE 60; RESP 16; O2SAT 97
[2016-05-31 10:59] VITALS: BP 115/73; PULSE 61; RESP 16; O2SAT 98
--- NOTE | 2016-05-31 16:14 | OPNOTEF ---
DATE OF OPERATION 05/31/2016 PREOPERATIVE DIAGNOSIS Open wound of right shoulder, status post wide excision of malignant melanoma. POSTOPERATIVE DIAGNOSIS Open wound of right shoulder, status post wide excision of malignant melanoma. OPERATION Split-thickness skin graft to right shoulder: 6.5 x 6 cm. SURGEON Martha Chaney M.D. ANESTHESIA MAC INDICATIONS Please see the patient's previous operative reports for the details of his history and prior surgery. Of note, he had undergone a wide excision of a known malignant melanoma on 2016. Once the final pathology had confirmed clear margins, he was scheduled for closure of the same. On exam, he had a 6.5 x 6 cm open wound of the right shoulder with early granulation and some fibrinous exudate. In detailed discussion with the patient preoperatively, the risks, benefits and alternatives of grafting of the right shoulder were reviewed including, but not limited to, bleeding, infection, poor or keloid scarring, partial or complete loss of the graft. The patient understood and wished to proceed. DESCRIPTION OF PROCEDURE The patient was brought to the operating room where, after suitable anesthesia had been obtained, the right anterior thigh and right shoulder were prepped and draped in the usual sterile manner. The fibrinous exudate from the shoulder was removed using a scrub brush and there was viable bleeding postprocedure. Next, a 6.5 x 6 cm split-thickness skin graft was harvested from the right anterior thigh, meshed and inset using a running 4-0 chromic. A bolster dressing of Xeroform and mineral oil-soaked cotton were then sutured using interrupted 5-0 nylon. The donor site was dressed with a silver-impregnated Mepilex and the graft site was dressed with ABD, Epifoam and Mefix tape. The patient was then brought to the recovery room in stable condition. Estimated blood loss less than 5 mL. The case was clean/contaminated. There were no specimens. [facility]
== END 2016-05-31 11:07 | disposition home or self-care (01) ==
LOC: SCU 06:53
PROVIDERS: ATTEND Surgery Plastic and Reconstructive Surgery
DX: Z48.1 Encounter for planned postprocedural wound closure (principal)
CPT/HCPCS: 15100; 36415; 80048; A6222; A6223; J0690; J3010; J7120